=== PATIENT | male | born 1990 | race African-American/Black ===

== ENCOUNTER 2018-04-25 18:22 | Observation (INO) | payer BC ==
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
[2018-04-25] MEDS ORDERED: Diphtheria,Pertussis(Acell),Tetanus Vaccine 0.5 ML Syringe IM ONE (18:34)
[2018-04-25] MEDS ORDERED: Bacitracin Oint 28.35 GM Tube TOP STA (19:15)
[2018-04-25] MEDS ORDERED: Bacitracin Oint 1 GM U/D Packet ONE (19:17)
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
[2018-04-25] MEDS ORDERED: Lactated Ringers 1,000 ML IV SCH (20:30)
[2018-04-25] MEDS ORDERED: Bacitracin Oint 28.35 GM Tube TOP SCH (22:00)
[2018-04-25] MEDS: Morphine 10 MG/ML Syringe IVPUSH PRN ×2 (22:00→23:20)
--- NOTE | 2018-04-26 09:19 | CR ---
EXAM DATE: 04/25/18 PATIENT'S AGE: 27 Patient: SONYA SOTELO Facility: [place], [place] Site . Site : 1990 Study: XRay Extremity Left ankle [id number]/6/2018 6:51:49 PM Ordering Physician: Kemar Arzola Final Report: Indication: Injury and pain Technique: Left ankle 3 views Comparison: None Findings/Impression: Bones: Acute, comminuted and minimally displaced intra-articular fracture is present in the distal tibia. Transverse nondisplaced fractures in the distal fibula. Joint spaces: Ankle mortise is incongruent suggesting the possibility of ligamentous injury. Soft tissues: There is generalized soft tissue swelling. Dictated by Elias Ramos MD @ Apr 25 2018 7:19PM (Electronic Signature) Report Signed by Proxy. ANA
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
== END 2018-04-26 03:21 ==
LOC: MW.ED 18:22 → MW.ICU 20:58
PROVIDERS: ADMIT Surgery; ATTEND Surgery
DX: S82.252A Displaced comminuted fracture of shaft of left tibia, initial encounter for closed fracture (principal); S82.302A Unspecified fracture of lower end of left tibia, initial encounter for closed fracture; S06.5X0A Traumatic subdural hemorrhage without loss of consciousness, initial encounter; S01.01XA Laceration without foreign body of scalp, initial encounter; V86.56XA Driver of dirt bike or motor/cross bike injured in nontraffic accident, initial encounter
CPT/HCPCS: 70450; 73610; 81001; 90471; 90715; 96374; 96375; 99285; G0378; J2270; J7120

== ENCOUNTER 2018-05-02 21:21 | Emergency (ER) | payer BC | END 2018-05-02 22:00 | disposition left against medical advice (07) | LOC: MW.ED 21:21 | DX: Z53.21 Procedure and treatment not carried out due to patient leaving prior to being seen by health care provider (principal) ==

== ENCOUNTER 2020-02-05 02:26 | Emergency (ER) | payer BC ==
--- NOTE | 2020-02-05 02:46 | EDM.PDOC ---
ED HPI GENERAL MEDICAL PROBLEM - General Chief Complaint: ENT Problem Stated Complaint: THROAT HURTS AND HEADACHE Time Seen by Provider: 02/05/20 02:28 Source of Information: Reports: Patient History Limitations: Reports: No Limitations - History of Present Illness INITIAL COMMENTS - FREE TEXT/NARRATIVE: HISTORY OF PRESENT ILLNESS: Patient is a 29-year-old male who reports sore throat for the past 4 days. Rates his pain as 2 out of 10 in severity with swallowing. Had a headache earlier this week which is now resolved today. Denies any rash or neck stiffness. No chest pain or dyspnea. Denies any cough , fevers or chills. No known exposure to strep. No known exposure to COVID 19 REVIEW OF SYSTEMS: Other than the symptoms associated with the present events, the following is reported with regard to recent health: General: (-) fever. HENT: (-) congestion. Respiratory: (-) cough. Cardiovascular: (-) chest pain. GI: (-) abdominal pain. : (-) urinary complaints. Musculoskeletal: (-) other aches or pains. Endocrine: (-) generalized weakness. Neurological: (-) localized weakness. Skin: (-) rash PAST MEDICAL HISTORY: reviewed as per nursing notes SOCIAL HISTORY: reviewed as per nursing notes, MEDICATIONS: Per nurse's note ALLERGIES: Per nurse's note, reviewed by me PHYSICAL EXAMINATION: GENERALIZED APPEARANCE: well developed, well nourished in no distress VITAL SIGNS: Per nurse's note, reviewed by me SKIN: Warm, dry; (-) cyanosis; (-) rash. HEAD: (-) scalp swelling, (-) tenderness. EYES: (-) conjunctival pallor, (-) scleral icterus. ENMT: (-) stridor; mucous membranes moist. Pharyngeal erythema. Uvula midline. No phonation changes. No trismus. Airway widely patent. NECK: (-) tenderness, (-) stiffness, CHEST AND RESPIRATORY: (-) rales, (-) rhonchi, (-) wheezes; breath sounds equal bilaterally. HEART AND CARDIOVASCULAR: (-) irregularity; (-) murmur, (-) gallop. ABDOMEN AND GI: Soft; (-) tenderness, (-) guarding, (-) rebound, (-) palpable masses, EXTREMITIES: (-) deformity, (-) edema. NEURO AND PSYCH: Alert. Cranial nerves grossly intact; strength symmetric. gait steady DIAGNOSTICS: strep negative EMERGENCY DEPARTMENT COURSE AND TREATMENT: Patient's condition remained stable during Emergency Department evaluation. Based on history, physical exam, and diagnostic evaluation, the patient has symptoms consistent with acute pharyngitis. There is no obvious swelling of the peritonsillar area or abscess. The airway appears patent and respiratory pattern is normal. The patient has no trismus and is tolerating oral food and fluid. I felt that outpatient management with close followup by the patient's primary care provider in 1-2 days was appropriate. The patient's questions were answered, and discharge precautions and reasons to return to the clinic were discussed. The patient understands to return to the ED if symptoms do not improve as discussed, or if symptoms worsen. PLAN AND FOLLOW-UP: Patient received written and verbal instructions regarding this condition. Return to ED immediately with any new or worsening symptoms. Follow up to be arranged by patient with pcp in 1-2 days for further evaluation. Given discharge precautions. Patient expressed verbal understanding. throat Pain Score (Numeric/FACES): 2 - Related Data Allergies Allergy/AdvReac Type Severity Reaction Status Date / Time No Known Allergies Allergy Verified 02/05/20 02:29 Home Meds: Home Meds . [No Known Home Meds] 04/25/18 [History] Past Medical History - Past Health History Medical/Surgical History: Denies Medical/Surgical History HEENT History: Reports: None Cardiovascular History: Reports: None Respiratory History: Reports: None Genitourinary History: Reports: None Neurological History: Reports: None Psychiatric History: Reports: None Endocrine/Metabolic History: Reports: None Hematologic History: Reports: None Immunologic History: Reports: None Oncologic (Cancer) History: Reports: None - Infectious Disease History Infectious Disease History: Reports: Chicken Pox - Past Surgical History GI Surgical History: Reports: Hernia, Inguinal Other Musculoskeletal Surgeries/Procedures:: right ankle surgery Social & Family History - Family History Family Medical History: Noncontributory - Tobacco Use Smoking Status *Q: Never Smoker - Caffeine Use Caffeine Use: Reports: Soda - Recreational Drug Use Recreational Drug Use: Yes Recreational Drug Type: Reports: Marijuana/Hashish ED ROS GENERAL - Review of Systems Review Of Systems: See Below (see dictation) ED EXAM, GENERAL - Physical Exam Exam: See Below (see dictation) Course - Vital Signs Last Recorded V/S: Last Vital Signs Temp 97.6 F 02/05/20 02:30 Pulse 76 02/05/20 02:30 Resp 16 02/05/20 02:30 BP 151/86 H 02/05/20 02:30 Pulse Ox 97 02/05/20 02:30 - Orders/Labs/Meds Orders: Active Orders 24 hr Category Date Time Status CULTURE STREP A CONFIRMATION [RM] Stat Lab 02/05/20 02:35 Results STREP SCRN A RAPID W CULT CONF [RM] Stat Lab 02/05/20 02:35 Results Departure - Departure Time of Disposition: 03:04 Disposition: Home, Self-Care 01 Condition: Good Clinical Impression: Pharyngitis - Discharge Information *PRESCRIPTION DRUG MONITORING PROGRAM REVIEWED*: Not Applicable *COPY OF PRESCRIPTION DRUG MONITORING REPORT IN PATIENT YASMEEN: Not Applicable Instructions: Pharyngitis, [id number] Referrals: PCP,None [Primary Care Provider] - Kerry Cat [Ordering Only Provider] - Forms: ED Department Discharge Additional Instructions: The following information is given to patients seen in the emergency department who are being discharged to home. This information is to outline your options for follow-up care. We provide all patients seen in our emergency department with a follow-up referral. The need for follow-up, as well as the timing and circumstances, are variable depending upon the specifics of your emergency department visit. If you don't have a primary care physician on staff, we will provide you with a referral. We always advise you to contact your personal physician following an emergency department visit to inform them of the circumstance of the visit and for follow-up with them and/or the need for any referrals to a consulting specialist. The emergency department will also refer you to a specialist when appropriate. This referral assures that you have the opportunity for follow-up care with a specialist. All of these measure are taken in an effort to provide you with optimal care, which includes your follow-up. Under all circumstances we always encourage you to contact your private physician who remains a resource for coordinating your care. When calling for follow-up care, please make the office aware that this follow-up is from your recent emergency room visit. If for any reason you are refused follow-up, please contact the [facility] Emergency Department at and asked to speak to the emergency department charge nurse. Sepsis Event Note - Evaluation Sepsis Screening Result: No Definite Risk - Focused Exam Vital Signs: Vital Signs Temp Pulse Resp BP Pulse Ox 02/05/20 02:30 97.6 F 76 16 151/86 H 97 Date Exam was Performed: 02/05/20 Time Exam was Performed: 03:10 - My Orders Last 24 Hours: My Active Orders 02/05/20 02:35 CULTURE STREP A CONFIRMATION [RM] Stat STREP SCRN A RAPID W CULT CONF [RM] Stat - Assessment/Plan Last 24 Hours: My Active Orders 02/05/20 02:35 CULTURE STREP A CONFIRMATION [RM] Stat STREP SCRN A RAPID W CULT CONF [RM] Stat
== END 2020-02-05 03:18 | disposition home or self-care (01) ==
LOC: MW.ED 02:26
DX: J02.9 Acute pharyngitis, unspecified (principal)
CPT/HCPCS: 87081; 87880-QW; 99282; 99283